=== PATIENT | female | born 1985 | race Asian ===

== ENCOUNTER 2018-05-10 23:34 | Emergency (ER) | payer OTHER ==
[~2018-05-10] VITALS: Ht 165.1 cm; Wt 58.0 kg
[2018-05-10 23:38] VITALS: Ht 165.1 cm; Wt 58.0 kg
[2018-05-11 00:07] VITALS: BP 135/85
[2018-05-11 00:25] LABS: CALCIUM 8.2 mg/dL (8.5-10.1); CARBON DIOXIDE 25.7 mmol/L (21-32); CHLORIDE SERUM 104 mmol/L (98-107); CREATININE SERUM 0.5 mg/dL (0.6-1.0); GFR1 > 60 mL/min; GLUCOSE SERUM 106 mg/dL (74-106); POTASSIUM SERUM 3.6 mmol/L (3.5-5.1); SODIUM SERUM 137 mmol/L (136-145)
[2018-05-11 00:26] LABS: BASOPHIL % 0.7 % (0-2); PLATELET COUNT 207 x10^3mcL (130-400); RED CELL DISTRIBUTION WIDTH 13.4 % (11.5-14.5)
== END 2018-05-11 01:01 | disposition home or self-care (01) ==
LOC: ED 23:34
PROVIDERS: Emergency Medicine
DX: R07.89 Other chest pain (principal); R06.00 Dyspnea, unspecified
CPT/HCPCS: 36415; Q0092